=== PATIENT | female | born 2000 | race Caucasian/White ===

== ENCOUNTER 2020-11-02 19:59 | Emergency (ER) | payer OTHER ==
[2020-11-02] MEDS ORDERED: Acetaminophen 500 MG TAB ONE (20:51)
[2020-11-02] MEDS ORDERED: Ibuprofen 800 MG TAB ONE (20:51)
== END 2020-11-02 22:52 | disposition home or self-care (01) ==
LOC: ERS 19:59
DX: S60.211A Contusion of right wrist, initial encounter (principal); S80.12XA Contusion of left lower leg, initial encounter; V03.90XA Pedestrian on foot injured in collision with car, pick-up truck or van, unspecified whether traffic or nontraffic accident, initial encounter
CPT/HCPCS: G0390